=== PATIENT | male | born 1955 | race Caucasian/White ===

== ENCOUNTER 2017-05-27 04:51 | Inpatient (IN) | payer SELFPAY ==
[~2017-05-27] VITALS: Ht 180.3 cm; Wt 112.7 kg
[~2017-05-27 04:51] MED LIST: ASPIRIN CHILDRE81 MG PO; B121000 MCG/1 IM; CARVEDILOL12.5 MG PO; HCTZ PO; THIAMINE HCL100 MG PO; ULTRAM50 MG PO; ZESTRIL20 MG PO; ZITHROMAX250 MG PO
[2017-05-27 04:55] VITALS: BP 155/77
[2017-05-27 05:20] LABS: BASO # 0.1 10*3/uL (0.0-0.1); BASO % 0.6 % (0.0-1.0); EOS # 0.2 10*3/uL (0.0-0.4); EOS % 1.9 % (1.0-4.0); HEMATOCRIT 41.9 % (42.0-52.0); HEMOGLOBIN 14.7 g/dl (14.0-18.0); LYMPH # 0.9 10*3/uL (1.3-4.4); LYMPH % 11.6 % (27.0-41.0); MEAN CELL VOLUME 96.3 fl (80.0-94.0); MEAN CORPUSCULAR HGB 33.8 pg (27.0-31.0); MEAN CORPUSCULAR HGB CONC 35.1 g/dl (33.0-37.0); MEAN PLATELET VOLUME 9.1 fl (9.6-12.3); MONO # 0.7 10*3/uL (0.1-1.0); MONO % 8.4 % (3.0-9.0); NEUT # 6.1 10*3/uL (2.3-7.9); NEUT % 77.2 % (47.0-73.0); PLATELET COUNT AUTOMATED 210 10*3/uL (130-400); RED BLOOD COUNT 4.35 10*6/uL (4.50-5.90); RED CELL DISTRI WIDTH 12.2 % (0-14.5); WHITE BLOOD COUNT 7.9 10*3/uL (4.8-10.8)
[2017-05-27 05:37] LABS: ALBUMIN 3.6 gm/dl (3.1-4.5); ALKALINE PHOSPHATASE 63 U/L (45-117); BUN 39 mg/dl (7-24); CHLORIDE 107 mmol/L (98-107); CREATININE 2.14 mg/dL (0.70-1.30); MAGNESIUM 2.3 mg/dL (1.5-2.1); POTASSIUM 4.3 mmol/L (3.5-5.1); SGOT/AST 21 IU/L (3-35); SGPT/ALT 37 U/L (12-78); SODIUM 139 mmol/L (136-145); TOTAL PROTEIN 7.3 gm/dL (6.4-8.2)
[2017-05-27 05:38] LABS: TROPONIN I < 0.015 ng/ml (<0.045)
[2017-05-27 07:08] VITALS: BP 155/103
--- NOTE | 2017-05-27 07:08 | NUR ---
PATIENT IS ALERT AND ORIENTED X3, STATES THAT HE IS FEELING MUCH BETTER AT THIS TIME, DENIES ANY SHORTNESS OF BREATH OR DIFFICULTY SWALLOWING, RESPIRATIONS ARE EASY AND NONLABORED, SKIN IS PINK, WARM, AND DRY, PATIENT IS RESTING IN BED, CALL LIGHT IN REACH OF THE PATIENT, CONTINUING TO MONITOR THE PATIENT. CLAIRERN
--- NOTE | 2017-05-27 07:37 | NUR ---
V.O. GIVEN BY DR. FOX FOR A REPEAT EKG TO BE COMPLETED ON PATIENT AT THIS TIME, V.O. REPEATED BACK TO DR. FOX AT THIS TIME. FAN RANGEL
--- NOTE | 2017-05-27 07:58 | NUR ---
A 62, admitted to ICCU, under the services of ASHLEY Davies DO with a diagnosis of ANGIOEDEMA. Chief complaint is THROAT SWELLING. Patient arrived via ambulatory from ER. Monitor applied. Initial assessment completed. Vital signs taken and recorded. ASHLEY DAVIES DO notified of admission to the unit. Orders received. See assessment for past medical history, medications and allergies. Patient and/or family oriented to unit. [facility]U visitation policy reviewed. Clothing/patient valuable form completed. JAMIA SPEAR
[2017-05-27 08:00] VITALS: BP 172/102
--- NOTE | 2017-05-27 08:08 | NUR ---
PATIENT TAKEN TO ROOM ICCU 9 PLACED ON THE MONITOR AND CARE TRANSFERRED TO FAN BLANDON. FAN RANGEL
[2017-05-27] MEDS ORDERED: SUPER B COMPLE1 EAC1 PO (08:36)
[2017-05-27] MEDS ORDERED: NORVASC5 MG PO (08:36)
[2017-05-27] MEDS ORDERED: CLARITIN10 MG PO (08:37)
--- NOTE | 2017-05-27 08:37 | NUR ---
MED REC UPDATED.
[2017-05-27 12:00] VITALS: BP 158/96
[2017-05-27 16:00] VITALS: BP 157/89
--- NOTE | 2017-05-27 16:18 | NUR ---
PT REQUESTING SOMETHING TO HELP HIM SLEEP TONIGHT, SPOKE WITH DR ACOSTA. STATED HE WOULD ORDER SOMETHING.
[2017-05-27 20:00] VITALS: BP 160/86
--- NOTE | 2017-05-27 20:00 | NUR ---
AAOX3. IV FLUIDS INFUSING INTO RIGHT ANTECUBITAL WITHOUT DIFFICULTY; SITE ASYMPTOMATIC. PT. VOICES NO C/O AT THIS TIME. NO DISTRESS NOTED. CALL LIGHT WITHIN REACH.
--- NOTE | 2017-05-27 21:35 | NUR ---
MEDICATED WITH [employer] PER PT'S REQUEST FOR SLEEP.
[2017-05-28] VITALS: BP 153/90
--- NOTE | 2017-05-28 01:00 | NUR ---
RESTING IN BED WITH EYES CLOSED. RESTORIL GIVEN EARLIER APPARENTLY EFFECTIVE.
--- NOTE | 2017-05-28 04:00 | NUR ---
RESTING IN BED SLEEPING. IV FLUIDS INFUSING WITHOUT ANY DIFFICULTY. CALL LIGHT WITHIN REACH.
[2017-05-28 06:10] LABS: BASO % 0.1 % (0.0-1.0); HEMATOCRIT 38.8 % (42.0-52.0); HEMOGLOBIN 13.3 g/dl (14.0-18.0); LYMPH # 0.7 10*3/uL (1.3-4.4); LYMPH % 6.3 % (27.0-41.0); MEAN CELL VOLUME 99.2 fl (80.0-94.0); MEAN CORPUSCULAR HGB CONC 34.3 g/dl (33.0-37.0); MEAN PLATELET VOLUME 9.4 fl (9.6-12.3); MONO # 0.7 10*3/uL (0.1-1.0); MONO % 6.8 % (3.0-9.0); NEUT # 8.9 10*3/uL (2.3-7.9); NEUT % 86.2 % (47.0-73.0); PLATELET COUNT AUTOMATED 191 10*3/uL (130-400); RED BLOOD COUNT 3.91 10*6/uL (4.50-5.90); RED CELL DISTRI WIDTH 12.4 % (0-14.5); WHITE BLOOD COUNT 10.3 10*3/uL (4.8-10.8)
--- NOTE | 2017-05-28 06:27 | NUR ---
CALLED DR. KELLER PERTAINING TO PT'S ELEVATED BLOOD PRESSURE. NO NEW ORDERS RECEIVED AT THIS TIME.
[2017-05-28 06:39] LABS: CREATININE 1.47 mg/dL (0.70-1.30); FREE T4 0.76 ng/dl (0.76-1.46); POTASSIUM 4.2 mmol/L (3.5-5.1)
[2017-05-28 06:46] LABS: THYROID STIM HORMONE (HS) 0.541 uIU/ml (0.358-4.75)
[2017-05-28 07:48] LABS: VITAMIN D, 25-HYDROXY 17.4 ng/mL (30-100)
[2017-05-28 08:00] VITALS: BP 160/94
[2017-05-28 12:00] VITALS: BP 162/80
--- NOTE | 2017-05-28 13:35 | NUR ---
Discharge instructions reviewed with patient/family. Patient receptive and verbalizes understanding. Follow-up care arranged. Written instructions given to patient/family. IV removed, pt denied need for transport to [facility]. BARBARA BUNCH
== END 2017-05-28 13:35 | disposition home or self-care (01) | DRG 915 ==
LOC: ED 04:51 → EDHOLD 06:25 → ICCU 07:15 → 5E 14:16
PROVIDERS: Emergency Medicine Emergency Medical Services; Student in an Organized Health Care Education/Training Program; ADMIT Internal Medicine
DX: T78.3XXA Angioneurotic edema, initial encounter (principal); N17.0 Acute kidney failure with tubular necrosis; I10 Essential (primary) hypertension; E83.41 Hypermagnesemia; Z72.89 Other problems related to lifestyle

== ENCOUNTER 2018-09-16 15:57 | Inpatient (IN) | payer SELFPAY ==
[2018-09-16] VITALS (7 sets, daily range): BP systolic 110–165; BP diastolic 63–92
--- NOTE | ~2018-09-16 | EKG ---
[place], [place] ELECTROCARDIOGRAM REPORT NAME: VIKI RUVALCABA UNIT #: [id number] ROOM: [place] [address] DOCTOR: KOURTNEY DRAFT REPORT BIRTHDATE: [birth year] [facility] Test Date: 2018-09-16 Test Time: 16:12:49 Pat Name: VIKI RUVALCABA Department: Room: [place] [address] Gender: M Felled Seam Operator: Camila Flaherty : 1955 Requested By: BRIGIDA FOX Order Number: [id number] Reading MD: Darlene Charles MD Measurements Intervals [place] Rate: 63 P: -8 UT: 156 QRS: -18 QRSD: 137 T: 63 QT: 406 QTc: 416 Interpretive Statements Sinus rhythm Nonspecific intraventricular conduction delay Baseline wander in lead(s) V6 Electronically Signed On 09-19-2018 14:06:19 PST by Darlene Charles MD CM:EKGRPT:ELECTROCARDIOGRAM REPORT [id number] BRIGIDA OCONNELL DRAFT REPORT BRIGIDA FOX MD
[~2018-09-16 15:57] MED LIST changes: -CARVEDILOL12.5 MG PO; +CLARITIN10 MG PO; +COREG25 MG PO; +DOXYCYCLINE100 M3 PO; -HCTZ PO; +HYDROCHLOROTHIA25 M1 PO; +NORVASC5 MG PO; +SUPER B COMPLE1 EAC1 PO
[2018-09-16 16:31] LABS: BASO # 0.1 10*3/uL (0.0-0.1); BASO % 0.7 % (0.0-1.0); EOS # 0.1 10*3/uL (0.0-0.4); EOS % 1.5 % (1.0-4.0); HEMATOCRIT 50.2 % (42.0-52.0); HEMOGLOBIN 17.2 g/dl (14.0-18.0); LYMPH # 1.9 10*3/uL (1.3-4.4); LYMPH % 20.2 % (27.0-41.0); MEAN CORPUSCULAR HGB 33.6 pg (27.0-31.0); MEAN CORPUSCULAR HGB CONC 34.3 g/dl (33.0-37.0); MONO # 0.9 10*3/uL (0.1-1.0); MONO % 9.5 % (3.0-9.0); NEUT # 6.4 10*3/uL (2.3-7.9); NEUT % 67.9 % (47.0-73.0); PLATELET COUNT AUTOMATED 262 10*3/uL (130-400); RED BLOOD COUNT 5.12 10*6/uL (4.50-5.90); RED CELL DISTRI WIDTH 11.9 % (0-14.5); WHITE BLOOD COUNT 9.4 10*3/uL (4.8-10.8)
[2018-09-16 16:38] LABS: ABG BASE EXCESS -1.1 mmol/L (-2.0-2.0); ABG HCO3 22.9 mmol/l (22-26); ABG O2 SATURATION 95.3 % (95-97); ARTERIAL BLOOD GAS PCO2 37.2 mmHg (35-45); ARTERIAL BLOOD GAS PH 7.403 (7.35-7.45); ARTERIAL BLOOD GAS PO2 73.9 mmHg (80-90)
[2018-09-16 16:40] LABS: ACT PARTIAL THROMBO TIME 22.7 SECONDS (20.8-31.5); INTERNATIONAL NORM RATIO 0.9 (2.0-3.5)
[2018-09-16 16:48] LABS: ALBUMIN 3.3 gm/dl (3.1-4.5); ALKALINE PHOSPHATASE 75 U/L (45-117); BUN 19 mg/dl (7-24); CHLORIDE 98 mmol/L (98-107); CREATININE 1.15 mg/dL (0.70-1.30); POTASSIUM 3.3 mmol/L (3.5-5.1); SGOT/AST 24 IU/L (3-35); SGPT/ALT 45 U/L (12-78); SODIUM 133 mmol/L (136-145); TOTAL PROTEIN 7.4 gm/dL (6.4-8.2)
[2018-09-16 16:54] LABS: ACETAMINOPHEN (TYLENOL) < 5.0 ug/ml (10-30); TROPONIN I < 0.015 ng/ml (<0.045)
[2018-09-16 17:00] LABS: BILIRUBIN NEGATIVE (NEGATIVE); BLOOD NEGATIVE (NEGATIVE); CLARITY CLEAR (CLEAR); COLOR YELLOW (YELLOW); GLUCOSE NEGATIVE (NEGATIVE); KETONE NEGATIVE (NEGATIVE); LEUKO ESTERASE NEGATIVE (NEGATIVE); NITRITE NEGATIVE (NEGATIVE); PH 5.5 (5.0-9.0); SPECIFIC GRAVITY <= 1.005 (1.005-1.030); UROBILINOGEN 0.2 E.U./dl (0.2-1.0)
[2018-09-16 17:07] LABS: URINE AMPHETAMINES < 1000 (1000ng/ml); URINE BARBITURATES < 200 (200ng/ml); URINE BENZODIAZEPINES < 200 (200ng/ml); URINE CANNABINOIDS (THC) < 50 (50ng/ml); URINE COCAINE < 300 (300ng/ml); URINE METHADONE < 300 (300ng/ml); URINE OPIATES < 300 (300ng/ml)
[2018-09-16 17:16] LABS: URINE PHENCYCLIDINE < 25 (25ng/ml)
[2018-09-16 17:19] LABS: BACTERIA TRACE; WBC 0-2 wbc/hpf (0-5)
[2018-09-17] VITALS: BP 155/88
[2018-09-17 04:00] VITALS: BP 115/60
[2018-09-17 04:44] LABS: BASO % 0.5 % (0.0-1.0); EOS # 0.1 10*3/uL (0.0-0.4); EOS % 1.2 % (1.0-4.0); HEMATOCRIT 48.8 % (42.0-52.0); HEMOGLOBIN 16.7 g/dl (14.0-18.0); LYMPH # 1.2 10*3/uL (1.3-4.4); LYMPH % 18.1 % (27.0-41.0); MEAN CELL VOLUME 98.6 fl (80.0-94.0); MEAN CORPUSCULAR HGB 33.7 pg (27.0-31.0); MEAN CORPUSCULAR HGB CONC 34.2 g/dl (33.0-37.0); MEAN PLATELET VOLUME 9.1 fl (9.6-12.3); MONO # 0.5 10*3/uL (0.1-1.0); MONO % 7.7 % (3.0-9.0); NEUT # 4.7 10*3/uL (2.3-7.9); NEUT % 72.2 % (47.0-73.0); PLATELET COUNT AUTOMATED 245 10*3/uL (130-400); RED BLOOD COUNT 4.95 10*6/uL (4.50-5.90); RED CELL DISTRI WIDTH 11.8 % (0-14.5); WHITE BLOOD COUNT 6.5 10*3/uL (4.8-10.8)
[2018-09-17 05:09] LABS: ACT PARTIAL THROMBO TIME 22.8 SECONDS (20.8-31.5); INTERNATIONAL NORM RATIO 0.9 (2.0-3.5)
[2018-09-17 05:15] LABS: ALBUMIN 3.1 gm/dl (3.1-4.5); BUN 15 mg/dl (7-24); CHLORIDE 103 mmol/L (98-107); PHOSPHOROUS 3.9 mg/dL (2.5-4.9); POTASSIUM 3.7 mmol/L (3.5-5.1); SGOT/AST 23 IU/L (3-35); SGPT/ALT 45 U/L (12-78); SODIUM 138 mmol/L (136-145); TRIGLYCERIDES 137 mg/dl (<150); VLDL CHOLESTEROL 27 mg/dL (6-40)
[2018-09-17 05:22] LABS: ALKALINE PHOSPHATASE 78 U/L (45-117); CHOLESTEROL 185 mg/dL (<200); FREE T4 0.93 ng/dl (0.76-1.46); HDL CHOLESTEROL 58 mg/dl (40-60); LDL CHOLESTEROL 100 mg/dL (9-159); TOTAL PROTEIN 7.2 gm/dL (6.4-8.2)
[2018-09-17 07:18] LABS: VITAMIN D, 25-HYDROXY 9.7 ng/mL (30-100)
[2018-09-17 07:51] VITALS: BP 160/100
== END 2018-09-17 09:10 | disposition home or self-care (01) | DRG 896 ==
LOC: ED 15:57 → ICCU 20:14 → EDHOLD 20:14 → ICCU 20:37
PROVIDERS: Emergency Medicine; Family Medicine; ADMIT Internal Medicine
PROC: 5A09357 Assistance with Respiratory Ventilation, Less than 24 Consecutive Hours, Continuous Positive Airway Pressure (ICD-10-PCS; principal; 2018-09-16)
DX: F10.129 Alcohol abuse with intoxication, unspecified (principal); G93.41 Metabolic encephalopathy; J96.01 Acute respiratory failure with hypoxia; E87.2 Acidosis; E87.1 Hypo-osmolality and hyponatremia; E87.6 Hypokalemia; R73.03 Prediabetes; R73.9 Hyperglycemia, unspecified; E66.9 Obesity, unspecified; E55.9 Vitamin D deficiency, unspecified; Y90.9 Presence of alcohol in blood, level not specified; S00.81XA Abrasion of other part of head, initial encounter; W18.39XA Other fall on same level, initial encounter; I10 Essential (primary) hypertension; Z90.49 Acquired absence of other specified parts of digestive tract; Z82.49 Family history of ischemic heart disease and other diseases of the circulatory system; Z80.9 Family history of malignant neoplasm, unspecified; Y93.89 Activity, other specified; Y92.89 Other specified places as the place of occurrence of the external cause; Y99.8 Other external cause status; Z79.899 Other long term (current) drug therapy; Z68.34 Body mass index [BMI] 34.0-34.9, adult

== ENCOUNTER 2019-10-27 15:48 | Emergency (ER) | payer OTHER ==
[2019-10-27 16:09] LABS: BASO # 0.1 10*3/uL (0.0-0.1); BASO % 0.7 % (0.0-1.0); EOS # 0.3 10*3/uL (0.0-0.4); EOS % 2.6 % (1.0-4.0); HEMATOCRIT 51.4 % (42.0-52.0); HEMOGLOBIN 17.2 g/dl (14.0-18.0); LYMPH # 1.8 10*3/uL (1.3-4.4); MEAN CORPUSCULAR HGB 33.5 pg (27.0-31.0); MEAN CORPUSCULAR HGB CONC 33.5 g/dl (33.0-37.0); MEAN PLATELET VOLUME 9.4 fl (9.6-12.3); MONO % 9.9 % (3.0-9.0); NEUT # 6.7 10*3/uL (2.3-7.9); NEUT % 66.9 % (47.0-73.0); PLATELET COUNT AUTOMATED 259 10*3/uL (130-400); RED BLOOD COUNT 5.14 10*6/uL (4.50-5.90); RED CELL DISTRI WIDTH 11.9 % (0-14.5)
[2019-10-27 16:24] LABS: ACT PARTIAL THROMBO TIME 25.4 SECONDS (20.0-32.1)
[2019-10-27 16:31] LABS: ALBUMIN 3.4 gm/dl (3.1-4.5); ALKALINE PHOSPHATASE 82 U/L (45-117); BUN 21 mg/dl (7-24); CHLORIDE 99 mmol/L (98-107); CREATININE 1.24 mg/dL (0.70-1.30); POTASSIUM 3.3 mmol/L (3.5-5.1); SGOT/AST 34 IU/L (3-35); SGPT/ALT 60 U/L (12-78); SODIUM 131 mmol/L (136-145); TOTAL PROTEIN 7.5 gm/dL (6.4-8.2)
[2019-10-27 16:32] LABS: TROPONIN I < 0.015 ng/ml (<0.045)
== END 2019-10-27 16:45 | disposition short-term general hospital (02) ==
LOC: ED 15:48
PROVIDERS: Emergency Medicine
DX: R07.89 Other chest pain (principal); F10.129 Alcohol abuse with intoxication, unspecified; I10 Essential (primary) hypertension; Z79.899 Other long term (current) drug therapy; V89.2XXA Person injured in unspecified motor-vehicle accident, traffic, initial encounter; Y93.89 Activity, other specified; Y92.828 Other wilderness area as the place of occurrence of the external cause; Y99.8 Other external cause status